=== PATIENT | female | born 1990 | race Caucasian/White ===

== ENCOUNTER 2020-10-03 00:46 | Inpatient (IN) ==
[2020-10-03] MEDS ORDERED: OXYTOCIN 30 UNITS/500 ML BAG IV PRN ×3 (01:35→18:35)
[2020-10-03] MEDS: BUTORPHANOL TARTRATE 1 MG/ML VIAL IV PRN ×2 (01:52→04:23)
[2020-10-03] MEDS ORDERED: BUTORPHANOL TARTRATE 1 MG/ML VIAL ONE (01:52)
[2020-10-03] MEDS: LACTATED RINGER'S 1,000 ML IV PRN ×4 (02:00→16:31)
[2020-10-03 03:55] LABS: Hematocrit (blood only) 34.7 % (37-47); Hemoglobin 11.1 g/dL (12.0-16.0); Mean Corpuscular Hemoglobin 26.2 pg (25-34); Platelet Count 242 K/uL (130-400); RDW Coefficient of Variation 15.9 % (11.5-14.5); RDW Standard Deviation 47.8 fL (36.4-46.3); Red Blood Count 4.23 M/uL (4.2-5.4); White Blood Count 12.53 K/uL (4.8-10.8)
[2020-10-03] MEDS ORDERED: ePHEDrine sulfate 50 MG/ML AMP ONE (07:29)
[2020-10-03] MEDS ORDERED: SODIUM CHLORIDE 0.9% INJ 10 ML VIAL ONE (07:29)
[2020-10-03] MEDS ORDERED: BUPIVACAINE 0.25% 30 ML VIAL ONE (07:29)
[2020-10-03] MEDS ORDERED: fentaNYL citrate 100 MCG/2 ML VIAL ONE (07:29)
[2020-10-03] MEDS ORDERED: fentaNYL 2MCG/ML ROPIVACAINE 1.25MG/ML 100 ML BAG EPI ONE (07:30)
--- NOTE | 2020-10-03 07:44 | Anesthesiology Consultation ---
Date of Service October 03, 2020 Assessment & Plan (1) Encounter for pre-operative examination: Chart Review Chart Review: Acceptable Risk for Labor Epidural History Height/Weight Height: 5 ft 4 in Weight: 91.172 kg Allergies Allergy/AdvReac Type Severity Reaction Status Date / Time No Known Allergies Allergy Verified 10/03/20 01:08 Medications Home Medications Medication Instructions Recorded Confirmed Last Taken prenat.vits,kirstin,vox-kejj-uehaj 1 tab PO DAILY 02/09/20 10/03/20 10/02/20 08:00 breast pump #1 ea 07/05/20 10/03/20 Unknown Active Medications Generic Name Dose Route Start Last Admin Trade Name Freq PRN Reason Stop Dose Admin Butorphanol Tartrate 1 mg 10/03/20 01:37 10/03/20 04:23 Butorphanol Tartrate 1 Mg/Ml Vial IV 11/02/20 01:36 1 mg Q1H PRN Administration Pain Lactated Ringer's 1,000 mls @ 125 mls/hr 10/03/20 01:35 10/03/20 05:30 Lr IV 10/05/20 01:34 125 mls/hr .Q8H PRN Infusion L&D Protocol Protocol Past Medical History Medical History (Updated 10/03/20 @ 07:44 by Davie Field MD) No significant past medical history Past Family History Family History Other Cancer Diabetes Past Surgical History Surgical History S/P wisdom tooth extraction Social History Smoking Status: Never smoker Hx Alcohol Use: No Hx Substance Use: No substance use type: does not use Physical Exam Vital Signs Last Vital Signs Temp 36.7 C 10/03/20 01:10 Pulse 96 H 10/03/20 07:40 Resp 18 10/03/20 01:10 BP 122/75 10/03/20 07:11 Pulse Ox 96 10/03/20 07:40 Testing Laboratory Results 10/03/20 01:48
[2020-10-03] MEDS ORDERED: NALOXONE HCL 1 MG in SODIUM CHLORIDE 0.9% 1000ML 1,000 ML IV PRN (08:19)
[2020-10-03] MEDS ORDERED: ONDANSETRON INJ 2 MG/ML 2 ML VIAL IV PRN (08:19)
[2020-10-03] MEDS ORDERED: ePHEDrine sulfate 50 MG/ML AMP IV PRN (08:19)
[2020-10-03] MEDS ORDERED: fentaNYL 2MCG/ML ROPIVACAINE 1.25MG/ML 100 ML BAG EPI PRN (08:19)
[2020-10-03] MEDS ORDERED: NALOXONE HCL 0.4 MG/1 ML VIAL/CARP IV PRN (08:19)
--- NOTE | 2020-10-03 10:32 | Labor Progress Brief Note ---
Date of Service October 03, 2020 Subjective Comfortable with epidural. Agreeable to AROM. Assessment & Plan Admission and Anticipated Discharge Date Admission Date: October 03, 2020 Physical Exam Physical Exam: FHT Cat 1 [place] Q3-4m 5/100/0 AROM clear fluid Results & Data ([facility]) Vital Signs (Past 12 Hours) Vital Signs Temp Pulse Resp BP Pulse Ox 10/03/20 10:31 117/65 10/03/20 10:29 91 H 98 10/03/20 10:24 107 H 98 10/03/20 10:19 97 H 95 10/03/20 10:15 93 H 111/61 10/03/20 10:14 92 H 96 10/03/20 10:09 97 H 95 10/03/20 10:04 93 H 95 10/03/20 10:02 92 H 108/62 10/03/20 09:59 96 H 95 10/03/20 09:54 90 96 10/03/20 09:49 95 H 94 10/03/20 09:45 97 H 111/57 L 10/03/20 09:44 94 H 94 10/03/20 09:39 97 H 94 10/03/20 09:34 91 H 95 10/03/20 09:31 105 H 104/56 L 10/03/20 09:29 98 H 94 10/03/20 09:24 97 H 94 10/03/20 09:19 97 H 94 10/03/20 09:15 99 H 113/65 10/03/20 09:14 98 H 94 10/03/20 09:11 99 H 94 10/03/20 09:09 96 H 94 10/03/20 09:06 99 H 94 10/03/20 09:04 102 H 93 10/03/20 09:01 99 H 106/66 10/03/20 09:00 102 H 94 10/03/20 08:59 97 H 95 10/03/20 08:54 96 H 94 10/03/20 08:49 93 H 93 10/03/20 08:48 98 H 93 10/03/20 08:44 106 H 96 10/03/20 08:42 103 H 119/65 10/03/20 08:39 100 H 96 10/03/20 08:36 101 H 118/59 L 10/03/20 08:33 105 H 97 10/03/20 08:32 105 H 117/66 10/03/20 08:28 110 H 97 10/03/20 08:24 107 H 114/61 10/03/20 08:23 113 H 98 10/03/20 08:22 100 H 112/67 10/03/20 08:20 105 H 117/67 10/03/20 08:18 107 H 109/67 97 10/03/20 08:16 90 113/70 10/03/20 08:14 98 H 121/75 10/03/20 08:13 107 H 98 10/03/20 08:08 115 H 98 10/03/20 08:03 116 H 100 10/03/20 07:58 116 H 99 10/03/20 07:53 110 H 98 10/03/20 07:48 113 H 100 10/03/20 07:40 96 H 96 10/03/20 07:35 100 H 97 10/03/20 07:30 101 H 96 10/03/20 07:25 100 H 98 10/03/20 07:20 101 H 98 10/03/20 07:15 95 H 96 10/03/20 07:11 97.9 F 100 H 20 122/75 10/03/20 07:10 109 H 99 10/03/20 07:09 99 H 94 10/03/20 07:05 96 H 96 10/03/20 07:00 115 H 98 10/03/20 06:55 96 H 95 10/03/20 06:51 98 H 94 10/03/20 06:50 97 H 96 10/03/20 06:45 97 H 95 10/03/20 06:40 97 H 95 10/03/20 06:35 103 H 96 10/03/20 06:33 100 H 93 10/03/20 06:30 98 H 97 10/03/20 06:14 100 H 97 10/03/20 06:09 94 H 96 10/03/20 06:04 106 H 97 10/03/20 06:01 97 H 94 10/03/20 05:59 97 H 98 10/03/20 05:54 100 H 97 10/03/20 05:49 100 H 98 10/03/20 05:45 96 H 94 10/03/20 05:44 92 H 95 10/03/20 05:40 103 H 94 10/03/20 05:39 103 H 96 10/03/20 05:34 102 H 94 10/03/20 05:33 99 H 94 10/03/20 05:29 108 H 99 10/03/20 05:24 108 H 96 10/03/20 05:19 98 H 94 10/03/20 05:16 102 H 94 10/03/20 05:14 116 H 99 10/03/20 05:09 104 H 95 10/03/20 05:04 103 H 96 10/03/20 04:59 104 H 95 10/03/20 04:54 104 H 98 10/03/20 04:52 94 H 94 10/03/20 04:49 103 H 96 10/03/20 04:44 98 H 93 10/03/20 04:42 94 H 94 10/03/20 04:39 105 H 98 10/03/20 04:37 103 H 94 10/03/20 04:36 102 H 131/75 10/03/20 04:34 98 H 93 10/03/20 04:30 102 H 94 10/03/20 04:29 100 H 95 10/03/20 04:24 101 H 97 10/03/20 04:19 93 H 97 10/03/20 04:14 111 H 97 10/03/20 04:09 101 H 97 10/03/20 03:08 94 H 95 10/03/20 03:03 91 H 95 10/03/20 03:00 96 H 94 10/03/20 02:58 98 H 98 10/03/20 02:53 95 H 94 10/03/20 02:48 94 H 96 10/03/20 02:43 96 H 94 10/03/20 02:42 99 H 94 10/03/20 02:38 97 H 96 10/03/20 02:36 96 H 94 10/03/20 02:33 98 H 95 10/03/20 02:31 96 H 94 10/03/20 02:28 100 H 95 10/03/20 02:24 92 H 93 10/03/20 02:23 94 H 94 10/03/20 02:18 97 H 97 10/03/20 02:13 96 H 93 10/03/20 02:12 95 H 94 07/26/21 02:08 94 H 92 10/03/20 02:03 102 H 125/73 94 10/03/20 01:58 95 H 94 10/03/20 01:57 98 H 94 10/03/20 01:53 90 129/79 95 10/03/20 01:10 98.1 F 105 H 18 129/73 10/03/20 01:03 105 H 129/73 Coding Level of Care Code None
[2020-10-03] MEDS ORDERED: OXYTOCIN 10 UNITS/ML VIAL ONE (17:28)
[2020-10-03] MEDS ORDERED: METHYLERGONOVINE MALEATE 0.2 MG/ML AMP ONE (17:29)
[2020-10-03] MEDS ORDERED: LIDOCAINE 1% LOCAL 20 ML VIAL ONE (17:55)
[2020-10-03] MEDS ORDERED: miSOPROStoL 200 MCG TAB ONE (18:25)
[2020-10-03] MEDS ORDERED: HYDROCORTISONE ACETATE 25 MG SUPP PR PRN (18:35)
[2020-10-03] MEDS ORDERED: ACETAMINOPHEN 325 MG TAB PO PRN (18:35)
[2020-10-03] MEDS ORDERED: miSOPROStoL 200 MCG TAB PR ONE (18:35)
[2020-10-03] MEDS ORDERED: SUPERCREAM 0.870% 15 GM JAR EXT PRN (18:35)
[2020-10-03] MEDS ORDERED: METHYLERGONOVINE MALEATE 0.2 MG/ML AMP IM ONE (18:35)
[2020-10-03] MEDS ORDERED: BENZOCAINE 20% AER SPR 82.5 GM CAN EXT PRN (18:35)
[2020-10-03] MEDS ORDERED: OXYTOCIN 10 UNITS/ML VIAL IM ONE (18:35)
[2020-10-03] MEDS ORDERED: DIPHTHERIA/TETANUS/PERTUSSIS 0.5 ML SYR/VIAL IM ONE (18:35)
[2020-10-03] MEDS ORDERED: bisacodyL 10 MG SUPP PR PRN (18:35)
[2020-10-03] MEDS ORDERED: LACTATED RINGER'S 1,000 ML IV ONE (18:40)
[2020-10-03] MEDS ORDERED: SODIUM CHLORIDE 0.9% 250 ML IV PRN (18:45)
[2020-10-03] MEDS: IBUPROFEN 600 MG TAB PO PRN (19:50)
[2020-10-03] MEDS: DOCUSATE SODIUM 100 MG CAP PO SCH (20:29)
[2020-10-04 06:30] LABS: Hematocrit (blood only) 26.6 % (37-47); Hemoglobin 8.5 g/dL (12.0-16.0)
--- NOTE | 2020-10-04 07:56 | Obstetrical Progress Note ---
Date of Service October 04, 2020 Assessment & Plan (1) Encounter for care and examination after delivery: 30yo s/p . Doing well. Routine care. H/H 8.5/26.6 Subjective Ambulation: ambulating normally Voiding: no voiding problems Passing Gas:: Yes Diet Tolerance:: regular diet Lochia:: Moderate Feeding Type:: breast feeding Physical Exam Constitutional WD/WN, vitals as above Respiratory normal respiratory effort; no respiratory distress and no labored breathing Gastrointestinal (Abdomen) Inspection/Auscultation: abdomen normal to inspection; abdomen not distended Percussion/Palpation: abdomen soft; abdomen nontender, no guarding and abdomen not rigid Genitourinary OB Exam Abdomen: + fundal height Fundus: + firm and + relation to umbilicus (Below); not tender or not boggy Results & Data ([facility]) Vital Signs (Past 12 Hours) Vital Signs Temp Pulse Pulse Pulse Resp BP BP 10/04/20 03:31 36.7 C 106 H 18 119/74 10/03/20 23:08 36.8 C 108 H 16 119/84 10/03/20 21:03 36.8 C 131 H 140 H 20 141/87 H 10/03/20 20:50 114 H 128/66 10/03/20 20:22 117 H 134/86 Pulse Ox 10/04/20 03:31 97 10/03/20 23:08 96 10/03/20 21:03 97 10/03/20 20:50 10/03/20 20:22
[2020-10-04] MEDS: DOCUSATE SODIUM 100 MG CAP PO SCH ×2 (08:48→20:37)
[2020-10-04] MEDS: PRENATAL VITAMIN 1 TAB PO SCH (08:48)
[2020-10-04] MEDS: FERROUS SULFATE 325 MG TAB PO SCH (08:48)
[2020-10-04] MEDS: IBUPROFEN 600 MG TAB PO PRN ×4 (08:48→20:37)
--- NOTE | 2020-10-04 09:30 | Delivery Summary ---
DATE OF PROCEDURE: 10/03/2020 PROCEDURE: Normal spontaneous vaginal delivery with second-degree perineal laceration repair. SURGEON: Garth Baer MD. PREOPERATIVE DIAGNOSIS: Single intrauterine at 40 weeks 6 days gestational age. POSTOPERATIVE DIAGNOSIS: Single intrauterine at 40 weeks 6 days gestational age, status po st delivery. ESTIMATED BLOOD LOSS: 800 mL DRAINS: Straight cath at the completion of the case. URINE OUTPUT: Per straight catheterization. COMPLICATIONS: None. FINDINGS: Viable male with weight pending and Apgars of 8 and 8 at one and five minutes respe ctively. INDICATIONS: The patient is a 30-year-old G1, P0, admitted at 40 weeks 5 days' gestational age for l abor with planned induction of labor that day. HOSPITAL COURSE: The patient was ultimately received an epidural and was started on oxytocin. She p rogressed in labor quickly to complete-complete +2 station, at which time she felt the urge to push. Patient progressed to 10 cm dilated, 100% effaced, positive 2 station, pushed over intact perineum f or a little over 2 hours to achieve delivery. Head of the delivered in CARLOS position, rest in to right transverse. A single nuchal cord was noted, which was easily reduced. Body and shoulders d id follow without any significant difficulty. The was delivered to maternal abdomen. It was noted to have attempts at crying. A short delayed cord clamping to see if the baby would become a s pontaneous vigorous was initiated ____ approximately about 30 seconds. The cord was then doubly clamp ed and cut. was taken over to the waiting nursery staff for further evaluation. Cord segmen t, cord blood was obtained. Cord segment was ultimately discarded as Apgars were 8 and 8. The attem pt to deliver placenta was then performed, although it was slow to come and a delayed time until the patient was starting to show signs of placenta separation. The placenta was removed. The patient di d start to have heavy bleeding and the attempt to move the placenta was performed. The placenta was in the vaginal canal and was able to be removed, although it had a portion of the distal end was stil l attached. The patient was noted to have heavy bleeding. Uterine massage was quickly initiated. T he patient's IV was infiltrated as she was delivering and therefore we did lose our IV site. The pat ient was given 10 units of IM Pitocin, continuous ____ was performed. The patient was still noted to have brisk ____ bleeding and the uterine sweep was performed to ensure that no membranes were left b ehind due to the delay with delivery of the placenta. No membranes were felt. Continued uterine mas brown was performed. The bladder was then emptied. There was noted to be a pretty good tone except f or the lower uterine segment. The patient was given a Methergine bleeding. We did slowly improve an d did become scant. The patient was then noted to have a second-degree laceration, which was repaire d with 3-0 Vicryl in continuous running stitch in a crown fashion. During the patient's bleeding per iod, while the patient was having bleeding, a full vaginal examination was performed. No additional lacerations noted. The patient after completion of the laceration repair, bleeding was still noted t o be minimal and decision was made to end the case, 800 mcg of Cytotec were placed per rectum. The n eedle, sponge, and instrument counts were correct at the completion of the case. Both mother and shin bernie were stable in the immediate post-delivery period. During the base patient's bleeding episode, after delivery, we replaced the IV line and the patient was given a bolus of oxytocin after the IV wa s reestablished. Job ID: [id number]
[2020-10-04] MEDS ORDERED: bisacodyL 5 MG TABEC PO SCH (20:00)
[2020-10-05] MEDS: IBUPROFEN 600 MG TAB PO PRN ×2 (03:56→08:19)
[2020-10-05] MEDS: DOCUSATE SODIUM 100 MG CAP PO SCH (08:18)
[2020-10-05] MEDS: FERROUS SULFATE 325 MG TAB PO SCH (08:18)
[2020-10-05] MEDS: PRENATAL VITAMIN 1 TAB PO SCH (08:19)
--- NOTE | 2020-10-05 08:41 | Obstetrical Progress Note ---
Date of Service October 05, 2020 Assessment & Plan (1) Encounter for care and examination after delivery: satisfactory course discharge to home follow up in 6 weeks Day #:: 2 Subjective Ambulation: ambulating normally Voiding: no voiding problems Passing Gas:: Yes Diet Tolerance:: regular diet Lochia:: Small Feeding Type:: breast feeding Review of Systems All systems reviewed & are unremarkable except as noted in HPI & below Physical Exam Constitutional WD/WN, vitals as above Psychiatric A+Ox3, euthymic affect Genitourinary OB Exam Abdomen: + fundal height Fundus: + firm and + relation to umbilicus (1 below U) Results & Data ([facility]) Vital Signs (Past 12 Hours) Vital Signs Temp Pulse Pulse Resp BP Pulse Ox 10/05/20 07:13 97.7 F 104 H 18 135/81 99 10/04/20 22:52 98.1 F 99 H 16 107/71 97
== END 2020-10-05 10:16 | disposition home or self-care (01) | DRG 807 ==
LOC: OPB 00:46 → EDSTATUS 00:46 → 4S1 00:47 → 4S2 21:00

== ENCOUNTER 2023-05-21 07:35 | Inpatient (IN) ==
[2023-05-21] MEDS ORDERED: LIDOCAINE 1% LOCAL 20 ML VIAL INFIL PRN (08:26)
[2023-05-21 08:54] LABS: Hematocrit (blood only) 36.5 % (37.0-47.0); Mean Corpuscular Hemoglobin 29.2 pg (25.0-34.0); Mean Corpuscular Hgb Conc 32.9 g/dL (32.0-36.0); Mean Corpuscular Volume 88.8 fL (80.0-100.0); Mean Platelet Volume 10.3 fL (9.4-12.4); Platelet Count 263 K/uL (130-400); RDW Coefficient of Variation 14.7 % (11.5-14.5); RDW Standard Deviation 47.7 fL (36.4-46.3); Red Blood Count 4.11 M/uL (4.20-5.40); White Blood Count 9.27 K/ul (4.8-10.8)
--- NOTE | 2023-05-21 08:55 | History & Physical Report ---
Date of Service May 21, 2023 Assessment & Plan (1) Encounter for induction of labor: Plan Patient has received a Sandy catheter balloon and Pitocin, IV has been initiated for IOL. May need AROM, etc later today. Will monitor progress with cervical exams performed by attending bunk house worker's. Admission and Anticipated Discharge Date Admission Date: May 21, 2023 History of Present Illness Chief Complaint: IOL (induction of labor) Primary Care Provider: Elham Erickson, DO , 40 weeks 3 days confirmed via ultrasound. Here for Induction of labor (due to post-term ). Complications with this include: none. Has been attending OB appointments regularly. Currently taking pre-karl vitamins, ferrous sulfate, docusate. Contractions: none. Fluid or Blood loss: none Movement: active Labs - Blood type, A+ - Antibody screen, neg (today's pending) - Hg, 12.0 - Hct, 36.5 - Wbc, 9.27 - Plt, 263 - Rubella, immune - VDRL/RPR, non-reactive - Gonorrhea, neg - Chlamydia, neg - HIV, neg - HbSAg, neg - GBS, neg - Glucose tolerance x 2 Allergies Allergy/AdvReac Type Severity Reaction Status Date / Time No Known Allergies Allergy Verified 05/20/23 08:29 Home Medications Medication Instructions Recorded Confirmed Type ferrous sulfate 325 mg (65 mg 325 mg PO Q OTHER DAY 03/13/23 05/21/23 History iron) tablet (FeroSul) docusate sodium 100 mg capsule 100 mg PO Q OTHER DAY 05/08/23 05/21/23 History (Colace) vits no.124-ferrous fum 1 tab PO DAILY 05/08/23 05/21/23 History 27 mg iron-folic acid 800 mcg tablet ( Vitamin) Past Med/Surg History Medical History (Updated 05/21/23 @ 10:01 by Saqib Hay MD) Scoliosis Migraine Overweight (BMI 25.0-29.9) No significant past medical history Supervision of normal intrauterine in primigravida Surgical History S/P wisdom tooth extraction Family History Family/Other Breast cancer Mother Bipolar 1 disorder Brother Bipolar 1 disorder Crohn's disease Depression Grandmother (Maternal) Diabetes Grandfather (Maternal) Cancer Grandmother (Paternal) Heart disease Grandfather (Paternal) Diabetes Heart disease Family/Other Stroke Other COPD (chronic obstructive pulmonary disease) Denies family history of Ovarian cancer Prostate cancer Alzheimer disease Dementia Myocardial infarction Colorectal cancer Asthma Social History Smoking Status: Never smoker Second Hand Exposure: No; Do You Dip or Chew Tobacco: No; Hx Alcohol Use: No Hx Substance Use: No Preferred Language: Czech Communication Ability: Effective Visual Impairment: Limited Hearing Ability: Normal Elevator Installer Required: No Beliefs That Will Affect Care: None marital status: marital status details: Abelino (29) [phone] Current Living Situation: Spouse Current Living Situation Comment: lives at home with spouse and child current occupational status: employed 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 How many Children do You have: 1 Other Information That Helps Us Care for You: No Feels Safe at Home: Yes Safety Concerns: Feels Safe At This Time Childhood Exposure to Second-Hand Smoke: Yes Diet: regular Diet Comment: Trys to follow low Carb caffeine: Yes during the past year weight has: increased > 10 lbs Dental Care, Regularly: Yes Physical Activity Frequency: 3-4 Times per Week Physical Activity Frequency Comment: Walking (Cardio) Seatbelt Use: always Sunscreen Use: No Assistive Devices: None Review of Systems Constitutional: no fever, no chills, no fatigue, no weakness, no weight loss, no weight gain and no increased appetite Eyes: + spots in vision (occasional in the wyatt wer); no diplopia and no worsening vision Ear, Nose, Mouth, Throat: no nasal congestion, no nasal discharge and no sore throat Respiratory: no cough, no chest congestion and no dyspnea Cardiovascular: no chest pain and no palpitations Gastrointestinal: + nausea (mild nausea, passes fairly qu ickly, ); no abdominal pain, no vomiting, no constipation and no diarrhea/loose stools Genitourinary: no dysuria and no urinary frequency Integumentary: no rash and no urticaria Neurologic: no tingling, no numbness, no dizziness and no headache(s) Allergy / Immunological: no urticaria Physical Exam Constitutional: WD/WN, vitals as above Eyes: normal visual elena by confrontation, PERRL and EOM intact bilaterally Respiratory: normal respiratory effort, lungs clear to auscultation Cardiovascular: RRR, no murmur, no edema Extremities: normal capillary refill; no calf tenderness Gastrointestinal (Abdomen): normal bowel sounds, soft, nontender, no hepatosplenomegaly Inspection/Auscultation: + abdomen distended Psychiatric: A+Ox3, euthymic affect Genitourinary: Manual OB Exam: + cervical dilation (2-3 cm), + cervical effacement 70% and + station -1 OB Exam Monitor Tracing: + external FHT monitor used, + external uterine monitor used, + normal FHT variability and + variable decelerations isolated (occured with cervix exam) Results & Data Results & Data Vital Signs (Past 12 Hours) Vital Signs Temp Pulse Resp BP Pulse Ox 05/21/23 08:08 122 H 91 05/21/23 08:07 125 H 97 05/21/23 08:02 113 H 99 05/21/23 07:57 125 H 98 05/21/23 07:52 129 H 99 05/21/23 07:49 36.6 C 117 H 18 97 05/21/23 07:47 117 H 97 05/21/23 07:45 122 H 123/67 Supervising Physician Co-Signing Physician Notes Resident Physician Supervision Note: I interviewed and examined the patient. Discussed with Dr. Hay and agree with findings and plan as documented in the note. Any exceptions or clarifications are listed here: Patient did not receive a cervical balloon prior to starting pitocin as her cervix was already favorable. Documented By: Yessica Guadalupe MD, FACOG
[2023-05-21] MEDS: LACTATED RINGER'S 1,000 ML IV PRN (09:00)
[2023-05-21] MEDS: OXYTOCIN 30 UNITS/NSS 30 UNITS/500 ML BAG IV PRN ×2 (09:10→21:12)
[2023-05-21] MEDS ORDERED: ePHEDrine sulfate 50 MG/ML AMP IV PRN (13:23)
[2023-05-21] MEDS ORDERED: fentANYL 2 MCG/ML BUPIVacaine 0.125%-NSS 100ML BAG EPI PRN (13:23)
[2023-05-21] MEDS ORDERED: fentaNYL citrate PF 100 MCG/2 ML VIAL EPI PRN (13:23)
[2023-05-21] MEDS ORDERED: BUPIVACAINE 0.25% PF 30 ML VIAL EPI PRN (13:23)
[2023-05-21] MEDS ORDERED: NALOXONE HCL 0.4 MG/1 ML VIAL/CARP IV PRN (13:23)
[2023-05-21] MEDS ORDERED: SODIUM CHLORIDE 0.9% PF INJ 10 ML VIAL EPI PRN (13:23)
[2023-05-21] MEDS ORDERED: ROPIVACAINE 0.5% PF 5 MG/ML 20 ML VIAL EPI PRN (13:23)
[2023-05-21] MEDS ORDERED: LIDOCAINE 2% MPF LOCAL 5 ML VIAL EPI PRN (13:23)
[2023-05-21] MEDS ORDERED: diphenhydrAMINE 50 MG/ML VIAL IV PRN (13:23)
[2023-05-21] MEDS ORDERED: NALBUPHINE HCL 5 MG in SYRINGE 0 ML IV PRN (13:23)
[2023-05-21] MEDS ORDERED: NALOXONE HCL 1 MG in SODIUM CHLORIDE 0.9% 1,000 ML IV PRN (13:23)
--- NOTE | 2023-05-21 13:23 | Anesthesiology Consultation ---
Date of Service May 21, 2023 Assessment & Plan Chart Review Chart Review: Acceptable Risk for Labor Epidural Consults Requested none History Height/Weight Height: 5 ft 4 in Weight: 88.178 kg Allergies Allergy/AdvReac Type Severity Reaction Status Date / Time No Known Allergies Allergy Verified 05/20/23 08:29 Medications Home Medications Medication Instructions Recorded Confirmed Last Taken ferrous sulfate 325 mg (65 mg 325 mg PO Q OTHER DAY 03/13/23 05/21/23 05/18/23 iron) tablet (FeroSul) docusate sodium 100 mg capsule 100 mg PO Q OTHER DAY 05/08/23 05/21/23 05/18/23 (Colace) vits no.124-ferrous fum 1 tab PO DAILY 05/08/23 05/21/23 05/19/23 27 mg iron-folic acid 800 mcg tablet ( Vitamin) Active Medications Generic Name Dose Route Start Last Admin Trade Name Freq PRN Reason Stop Dose Admin Oxytocin 30 units in 500 mls @ 8 mls/hr 05/21/23 08:26 05/21/23 11:45 Pitocin 30 Units/Nss IV 05/23/23 08:25 0.48 units/hr .Q24H PRN 8 mls/hr Labor Induction/Augmentation Titration Protocol 0.48 UNITS/HR Lactated Ringer's 1,000 mls @ 125 mls/hr 05/21/23 08:26 05/21/23 13:12 Lr IV 05/23/23 08:25 125 mls/hr .Q8H PRN Administration L&D Protocol Protocol Past Medical History Medical History (Updated 05/21/23 @ 10:01 by Saqib Hay MD) Scoliosis Migraine Overweight (BMI 25.0-29.9) No significant past medical history Supervision of normal intrauterine in primigravida Past Family History Family History Family/Other Breast cancer Mother Bipolar 1 disorder Brother Bipolar 1 disorder Crohn's disease Depression Grandmother (Maternal) Diabetes Grandfather (Maternal) Cancer Grandmother (Paternal) Heart disease Grandfather (Paternal) Diabetes Heart disease Family/Other Stroke Other COPD (chronic obstructive pulmonary disease) Denies family history of Ovarian cancer Prostate cancer Alzheimer disease Dementia Myocardial infarction Colorectal cancer Asthma Past Surgical History Surgical History S/P wisdom tooth extraction Social History Smoking Status: Never smoker Do You Dip or Chew Tobacco: No Hx Alcohol Use: No alcohol intake frequency: a few times a month Hx Substance Use: No substance use type: does not use Review of Systems Constitutional: no fever, no chills, no fatigue, no weakness, no weight loss, no weight gain and no increased appetite Eyes: + spots in vision (occasional in the shower); no diplopia and no worsening vision Ear, Nose, Mouth, Throat: no nasal congestion, no nasal discharge and no sore throat Respiratory: no cough, no chest congestion and no dyspnea Cardiovascular: no chest pain and no palpitations Gastrointestinal: + nausea (mild nausea, passes fairly quickly, ); no abdominal pain, no vomiting, no constipation and no diarrhea/loose stools Genitourinary (Female): no dysuria and no urinary frequency Integumentary: no rash and no urticaria Neurologic: no tingling, no numbness, no dizziness and no headache(s) Allergy / Immunological: no urticaria Physical Exam Vital Signs Last Vital Signs Temp 36.8 C 05/21/23 11:10 Pulse 107 H 05/21/23 13:21 Resp 16 05/21/23 12:08 BP 128/67 05/21/23 13:10 Pulse Ox 97 05/21/23 13:21 Testing Laboratory Results 05/21/23 08:39
[2023-05-21] MEDS: fentANYL 2 MCG/ML BUPIVacaine 0.125%-NSS 100ML BAG ONE (14:19)
[2023-05-21] MEDS: LIDOCAINE 2%/EPINEPHRINE 1:200,000 20 ML PF ONE (14:20)
[2023-05-21] MEDS: fentaNYL citrate PF 100 MCG/2 ML VIAL ONE (16:19)
[2023-05-21] MEDS: BUPIVACAINE 0.25% PF 30 ML VIAL ONE (16:19)
[2023-05-21] MEDS: SODIUM CHLORIDE 0.9% PF INJ 10 ML VIAL EPI STA (16:20)
[2023-05-21] MEDS: fentaNYL citrate PF 100 MCG/2 ML VIAL EPI STA (16:20)
[2023-05-21] MEDS: SODIUM CHLORIDE 0.9% PF INJ 10 ML VIAL ONE (16:20)
[2023-05-21] MEDS: ePHEDrine sulfate 50 MG/ML AMP ONE (16:20)
[2023-05-21] MEDS: BUPIVACAINE 0.25% PF 30 ML VIAL EPI STA (16:21)
[2023-05-21] MEDS: LIDOCAINE 2%/EPINEPHRINE 1:200,000 20 ML PF EPI STA (16:22)
[2023-05-21] MEDS ORDERED: bisacodyL 10 MG SUPP PR PRN (20:56)
[2023-05-21] MEDS ORDERED: HYDROCORTISONE ACETATE 25 MG SUPP PR PRN (20:56)
[2023-05-21] MEDS ORDERED: ACETAMINOPHEN 325 MG TAB PO PRN (20:56)
[2023-05-21] MEDS ORDERED: OXYTOCIN 30 UNITS/NSS 30 UNITS/500 ML BAG IV PRN (20:56)
[2023-05-21] MEDS ORDERED: oxyCODONE/ACETAMINOPHEN 5mg/325mg TAB PO PRN (20:56)
[2023-05-21] MEDS ORDERED: ZOLPIDEM TARTRATE 5 MG TAB PO PRN (21:00)
--- NOTE | 2023-05-21 21:21 | Delivery Summary ---
Vaginal Delivery Summary Date of Service May 21, 2023 Vaginal Delivery Summary and 2nd Degree LAC Patient is a 32-year-old 2 para 1-0-0-1 female who presents for induction because of postterm at 40-3/7 weeks. Pitocin induction protocol was begun. Membranes ruptured for clear fluid and she received effective epidural analgesia. She progressed to complete. She pushed effectively over intact perineum for delivery of a viable female infant over intact perineum. There was a mild shoulder dystocia which was resolved with hyperflexion of the hips. The rest of the delivered easily and was placed on the mother's abdomen for further attention and drying. After 1 minute the cord was clamped and cut. She was slow to transition and she was taken to the bed for further stimulation. At that point she was crying vigorously and moving all 4 limbs. After cord blood was obtained, the placenta was expressed intact with a three-vessel cord. bleeding was controlled with dilute Pitocin and and fundal massage. A second-degree perineal laceration was repaired with 3-0 chromic in the usual fashion. She had an increase in her bleeding in the immediate time. And a small amount of clot was swept from the lower uterine segment otherwise the uterine fundus was firm. QBL is 350 cc. Mother and infant were doing well after delivery. [facility] Vaginal Delivery Charge Delivery Type Details: and 2nd Degree LAC
[2023-05-21] MEDS: DIPHTHER/TETAN/PERTUS Vaccine (Tdap, Adol/Adult) 0.5mL IM ONE (21:28)
--- NOTE | 2023-05-21 21:35 | Anesthesia Procedure Note ---
Date of Service May 21, 2023 Anesthesia Post Epidural Note Vital Signs Vital Signs: Temp Pulse Resp BP Pulse Ox 36.7 C 109 H 16 185/69 H 97 05/21/23 19:00 05/21/23 21:32 05/21/23 21:15 05/21/23 21:32 05/21/23 20:57 Notes Mental Status: alert / awake / arousable and participated in evaluation Nausea / Vomiting: adequately controlled Pain: adequately controlled Airway Patency, RR, SpO2: stable & adequate BP & HR: stable & adequate Hydration State: stable & adequate Neuraxial Anesthesia: was administered and sensory block is resolving Anesthetic Complications: no major complications apparent and Pt Satisfied with anesthetic care Epidural: Removed without complications and With tip intact
[2023-05-21] MEDS: BENZOCAINE 20% SPRY 85 APPLN/85 GM CAN EXT PRN (22:01)
[2023-05-21] MEDS: DOCUSATE SODIUM 100 MG CAP PO SCH (22:01)
[2023-05-22] MEDS: IBUPROFEN 600 MG TAB PO PRN (01:15)
--- NOTE | 2023-05-22 06:14 | Obstetrical Progress Note ---
Date of Service <Saqib Hay MD - Last Filed: 05/22/23 07:44> May 22, 2023 Assessment & Plan <Saqib Hay MD - Last Filed: 05/22/23 07:44> (1) (normal spontaneous vaginal delivery): Plan 32 yo , status post w/ 2nd deg lac on 05/21/23. QBL of 350 mL. - Pt doing well clinically. Feels well today. Eating well, voiding well, ambulating well. Pain well controlled with PRN pain meds. - Routine care -- OOB, ambulation, diet progression as tolerated Vital Signs reviewed and WNL. (Tmax at 37.1). BP's have been in low normal range (i.e. 99/63) Hemoglobin Reviewed. 12.0 (05/21/23) pending(today). Blood Type: A+, GBS-, Rubella Immune. Encourage ambulation, monitor and control pain with Motrin PRN, resume regular diet, monitor lochia. Breast feeding encouraged. After discharge will have 6 week follow-up with Dr. Ahn. Pt encouraged to stay 2 days but counseled on discharge instructions, in the event they choose to go home today. <Yessica Guadalupe MD, FACOG - Last Filed: 05/22/23 08:31> (1) (normal spontaneous vaginal delivery): Subjective <Saqib Hay MD - Last Filed: 05/22/23 07:44> Ambulation: ambulating normally Voiding: no voiding problems Passing Gas:: Yes Diet Tolerance:: regular diet Lochia:: Moderate Feeding Type:: breast feeding Current Pain Level(1-10): 4 (low back pain and some flank pain) Constitutional: no fever, no chills, no fatigue, no weakness, no weight loss, no weight gain or no increased appetite Eyes: + spots in vision (occasional in the shower); no diplopia or no worsening vision Ear, Nose, Mouth, Throat: no nasal congestion, no nasal discharge or no sore throat Respiratory: no cough, no chest congestion or no dyspnea Cardiovascular: no chest pain or no palpitations Gastrointestinal: + nausea (mild nausea, passes fairly quickly, ); no abdominal pain, no vomiting, no constipation or no diarrhea/loose stools Genitourinary (female): no dysuria or no urinary frequency Integumentary: no rash or no urticaria Neurologic: no tingling, no numbness, no dizziness or no headache(s) Allergy / Immunological: no urticaria Physical Exam <Saqib Hay MD - Last Filed: 05/22/23 07:44> Constitutional WD/WN, vitals as above Eyes normal visual elena by confrontation, PERRL and EOM intact bilaterally Respiratory normal respiratory effort, lungs clear to auscultation Cardiovascular RRR, no murmur, no edema Extremities: normal capillary refill; no calf tenderness Gastrointestinal (Abdomen) normal bowel sounds, soft, nontender, no hepatosplenomegaly Inspection/Auscultation: + abdomen distended Psychiatric A+Ox3, euthymic affect Results & Data <Saqib Hay MD - Last Filed: 05/22/23 07:44> Vital Signs (Past 12 Hours) Vital Signs Temp Pulse Pulse Resp BP BP Pulse Ox 05/22/23 03:30 36.7 C 88 18 99/63 L 05/21/23 23:25 36.6 C 109 H 18 116/73 05/21/23 23:00 36.8 C 18 05/21/23 22:59 112 H 126/60 05/21/23 22:44 121 H 123/63 05/21/23 22:30 18 05/21/23 22:29 112 H 116/61 05/21/23 22:16 106 H 114/56 L 05/21/23 22:00 16 05/21/23 22:00 190 H 151/89 H 05/21/23 21:47 111 H 120/68 05/21/23 21:45 16 05/21/23 21:32 109 H 185/69 H 05/21/23 21:30 18 05/21/23 21:15 16 05/21/23 21:15 110 H 116/51 L 05/21/23 21:01 18 05/21/23 21:01 113 H 146/73 H 05/21/23 20:57 111 H 97 05/21/23 20:52 114 H 97 05/21/23 20:47 135 H 95 05/21/23 20:43 158 H 94 05/21/23 20:42 142 H 95 05/21/23 20:37 161 H 97 05/21/23 20:32 98 05/21/23 20:32 134 H 05/21/23 20:32 151 H 117/56 L 93 05/21/23 20:27 132 H 100 05/21/23 20:22 101 H 96 05/21/23 20:17 98 05/21/23 20:17 94 H 05/21/23 20:17 99 H 92/51 L 05/21/23 20:12 101 H 98 05/21/23 20:07 99 H 97 05/21/23 20:03 105 H 102/50 L 89 L 05/21/23 20:02 98 H 97 05/21/23 19:57 104 H 97 05/21/23 19:52 98 H 100 05/21/23 19:47 102 H 97 05/21/23 19:46 109 H 85/47 L 05/21/23 19:42 109 H 96 05/21/23 19:37 101 H 95 05/21/23 19:33 123 H 94/52 L 05/21/23 19:32 116 H 94 05/21/23 19:27 118 H 99 05/21/23 19:24 119 H 87 L 05/21/23 19:22 107 H 99 05/21/23 19:17 141 H 100 05/21/23 19:12 121 H 98 05/21/23 19:07 109 H 98 05/21/23 19:03 125 H 118/64 05/21/23 19:02 127 H 97 05/21/23 19:00 36.7 C 16 05/21/23 18:57 100 05/21/23 18:57 119 H 05/21/23 18:57 119 H 88 L 05/21/23 18:52 110 H 100 05/21/23 18:47 110 H 100 05/21/23 18:46 96 H 114/64 05/21/23 18:42 114 H 100 05/21/23 18:37 124 H 99 05/21/23 18:32 105 H 109/57 L 100 05/21/23 18:30 18 05/21/23 18:30 18 05/21/23 18:27 108 H 97 05/21/23 18:22 111 H 97 05/21/23 18:17 97 05/21/23 18:17 114 H 05/21/23 18:17 114 H 113/59 L 05/21/23 18:15 37.1 C 05/21/23 18:15 37.1 C 05/21/23 18:11 119 H 100 Supervising Physician <Yessica Guadalupe MD, FACOG - Last Filed: 05/22/23 08:31> Co-Signing Physician Notes Resident Physician Supervision Note: I interviewed and examined the patient. Discussed with Dr. Hay and agree with findings and plan as documented in the note. Any exceptions or clarifications are listed here: [None] Documented By: Yessica Guadalupe MD, FACOG
[2023-05-22 07:26] LABS: Hematocrit (blood only) 35.8 % (37.0-47.0); Hemoglobin 11.8 g/dl (12.0-16.0); Mean Corpuscular Hemoglobin 29.4 pg (25.0-34.0); Mean Corpuscular Volume 89.3 fL (80.0-100.0); Mean Platelet Volume 10.2 fL (9.4-12.4); Platelet Count 247 K/uL (130-400); RDW Coefficient of Variation 14.9 % (11.5-14.5); RDW Standard Deviation 47.9 fL (36.4-46.3); Red Blood Count 4.01 M/uL (4.20-5.40); White Blood Count 14.67 K/ul (4.8-10.8)
[2023-05-22] MEDS: PRENATAL VITAMIN 1 TAB PO SCH (08:20)
[2023-05-22] MEDS: bisacodyL 5 MG TABEC PO SCH (20:17)
== END 2023-05-22 21:31 | disposition home or self-care (01) | DRG 807 ==
LOC: 4S1 07:35 → 4E2 23:24